=== PATIENT | male | born 1960 | race Caucasian/White ===

== ENCOUNTER 2017-11-17 06:56 | Day surgery (SDC) | payer MEDICARE ==
--- NOTE | 2017-11-17 03:48 | History and Physical Report ---
DATE: 11/16/2017. CHIEF COMPLAINT AND HISTORY OF CHIEF COMPLAINT: This patient presents with a history of an intractable postlumbar laminectomy radiculopathy. A spinal cord implant was performed on 06/07/2015. Although for a period of time it appeared to be working well, recently within the last six to eight months, the system has started malfunctioning. It was believed that we had battery depletion, but instead of recharging and securing help in programming the system, he opted to have it removed. PAST MEDICAL HISTORY: Headaches, degenerative arthritis, bladder dysfunction. PAST SURGICAL HISTORY: Cervical spine fusion, lumbar spine fusion, ulnar transposition, nasal surgery. MEDICATIONS ON ADMISSION: To be provided. ALLERGIES: To be provided. SOCIAL HISTORY: Noncontributory. FAMILY HISTORY: Thyroid disease, diabetes, hypertension. REVIEW OF SYSTEMS: The patient is appropriate and in no acute distress. The remainder of the systems review shows difficulty sleeping. PHYSICAL EXAMINATION: General: Height and weight unavailable. Vital Signs: Not available. HEENT: Within normal limits. Lungs: Clear. Heart: Regular rate and rhythm. Abdomen: Nontender. Musculoskeletal: Examination of the musculoskeletal system shows the incision for the leads approximating the midthoracic spine. A generator pouch at the left posterior flank is identified. All of the incisions are intact. His primary pain pattern is in the neck, shoulder, and arm. Motor and sensory field abnormalities are noted to the right following a 5-6, 6-7 pattern. Neurologic: Cranial nerves are intact. IMPRESSION: 1. 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 2. RADICULOPATHY, ICD-10 CODE M54.12. 3. SPINAL CORD STIMULATOR IMPLANT WITH GENERATOR. PLAN: The patient is here by his request for removal of two spinal cord stimulators and internal generator. The procedure will be considered outpatient , although an overnight stay will be evaluated. JOB NUMBER: [id number] cc: Lopez Adams M.D. [facility]IMA
[~2017-11-17 06:56] MED LIST: ACETAMINOPHEN 1,000 MG/100 ML BTL IV ONE; CLINDAMYCIN 600MG/50ML PREMIX 600 MG/50 ML BAG IVPB ONE; FAMOTIDINE 20MG TABLET PO ONE; MECLIZINE 25 MG TABLET PO ONE; METOCLOPRAMIDE 10 MG TABLET PO ONE
[2017-11-17] MEDS ORDERED: VANCOMYCIN HCL 1 GM VIAL IVPB ONE (06:57)
[2017-11-17] MEDS ORDERED: PROPOFOL 10 MG/ML VIAL IV ONE (06:57)
[2017-11-17] MEDS ORDERED: FENTANYL PF 100MCG/2ML VIAL IV ONE (06:57)
[2017-11-17] MEDS ORDERED: MIDAZOLAM HCL 2MG/2ML VIAL IV ONE (06:57)
[2017-11-17] MEDS ORDERED: LIDOCAINE 1% MDV (10MG/ML) 20ML VIAL SQ ONE (06:57)
--- NOTE | 2017-11-18 14:21 | Operative Note ---
DATE: 11/17/2017. PREOPERATIVE DIAGNOSES: 1. 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 2. CERVICAL RADICULOPATHY, ICD-10 CODE M54.12. 3. SPINAL CORD STIMULATOR, TWO LEADS, INTERNAL GENERATOR NONFUNCTIONAL. PROCEDURES: 1. FLUOROSCOPICALLY GUIDED INCISION, SUBCUTANEOUS DISSECTION, AND REMOVAL OF TWO CERVICAL SPINAL CORD STIMULATORS. 2. INCISION, SUBCUTANEOUS DISSECTION, AND REMOVAL OF INTERNAL PULSE GENERATOR, LEFT FLANK, WITH CONNECTORS. SURGEON: Louis Sue D.O. ANESTHESIA: Local sedation. ANESTHESIA PROVIDER: Zachary Jesus CRNA. INDICATION: This patient presents with a history of an intractable postcervical laminectomy radiculopathy. Due to the failure of all therapies a stimulator trial was conducted followed by implant. The system has been in for over two years. Over the last number of months, the system has malfunctioned. Instead of revision which was suggested, he opted to remove. He is here for removal. DESCRIPTION OF THE PROCEDURE: Intravenous line, vital sign monitoring, intravenous sedation by Anesthesia. The patient was positioned prone. Sterile prep and sterile technique. The incisional site for the two leads approximating 12-1 was infiltrated with local. An incision was made and subcutaneous dissection was conducted. The leads, the anchors, and the sutures were removed intact. At the left flank at the generator pouch, the skin was infiltrated. An incision was made and subcutaneous dissection was conducted to the pouch. The generator, its connections, and the leads were removed intact. Bovie for hemostasis. Vancomycin powder was placed into both wounds. The incisions were then closed with Vicryl for the fascia and evangelist for the skin. A dressing was placed. He was transported to the recovery room stable, showing no side effects from the procedure or the sedation. DISCHARGE INSTRUCTIONS: 1. The sites are to remain clean and dry because of his evangelist. These will need to be removed in 10 to 14 days. No showering or bathing until he is seen in the office. The office is to contact the patient to set up the evaluation in the next 24 to 48 hours. 2. Standard medications are to be resumed including Levaquin the antibiotic 500 mg once a day for 14 days. 3. He will resume all other medications. 4. All other instructions were provided and numbers to contact with problems were given. JOB NUMBER: [id number] cc: YoandyHung Sinha
== END 2017-11-17 09:55 | disposition home or self-care (01) ==
LOC: SUR 06:56
PROVIDERS: ATTEND Pain Medicine Interventional Pain Medicine
DX: M96.1 Postlaminectomy syndrome, not elsewhere classified (principal); M54.12 Radiculopathy, cervical region
CPT/HCPCS: 85002